=== PATIENT | male | born 1965 | race Caucasian/White ===

== ENCOUNTER → 2023-07-11 | Outpatient (CLI) | payer MEDICARE ==
--- NOTE | 2023-07-11 11:23 | PE ---
EXAMINATION TYPE: PET CT fusion skull to thigh DATE OF EXAM: 07/11/2023 CLINICAL INDICATION:Male, 58 years old with history of C61 Prostate CA; TECHNIQUE: Following the intravenous administration of 5.58 mCi of Ga-68 Illuccix (PSMA), whole bod y images are performed from the skull base to the midthigh. Images are reviewed on the computer in [facility] coronal, axial, and sagittal planes. Reconstructed rotating images are created on independent wor kstation and reviewed on the computer. A non-contrast CT is performed in conjunction with the PET s can. CT DLP: 1073.61 mGycm, Automated exposure control for dose reduction was used. COMPARISON: CT None, PET/CT None, FINDINGS: Mediastinal SUV mean is 1.7. Hepatic parenchyma SUV mean is 5.5. SKULL BASE AND NECK: No suspicious radiotracer activity. CHEST, MEDIASTINUM, AND HILAR REGION: No suspicious radiotracer activity. ABDOMEN AND PELVIS: Abnormal radiotracer activity within the abdomen and pelvis examples include:. * Left retroperitoneal lymph node at the level of the left renal sinus max SUV 2.3. In what is thoug ht to be 1 lymph node with fatty hilum and cortex measuring up to 7 mm. Scattered smaller lymph nodes are present along the aorta with increased metabolic activity. There is at least 9 in the retroperit oneum. * In the pelvis external iliac lymph node on the right max SUV 10.7 and on the left Max SUV 19.1 * Pelvic sidewall lymph nodes on the right max SUV 17.0 and on the left 45.7. These measure 12 and 8 mm in short axis respectively. * Abnormal uptake within the prostate gland near the apex on the right posterior peripherally. Max S UV 19.8. MUSCULOSKELETAL STRUCTURES: No suspicious radiotracer activity. OTHER CT: Mild atherosclerosis of the coronary arteries. Mild bilateral gynecomastia changes. Hepatic steatosis. Cholelithiasis. Fat-containing umbilical hernia. The prostate gland is enlarged measuring up to 5.4 cm in transverse dimension. Bilateral fat-containing inguinal hernias. 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
== END | disposition home or self-care (01) ==
LOC: RADPETMAIN 08:12
PROVIDERS: ATTEND Urology
DX: C61 Malignant neoplasm of prostate (principal)
CPT/HCPCS: 78815; A9596

== ENCOUNTER → 2023-10-04 | Outpatient (CLI) | payer MEDICARE ==
[2023-10-05 03:22] LABS: Prostate Specific Antigen 0.46 ng/mL (0.000-4.500); Testosterone 10.4 ng/dL (86.98-780.10)
== END | disposition home or self-care (01) ==
LOC: LABWHC1 15:23
PROVIDERS: ATTEND Urology
DX: C61 Malignant neoplasm of prostate (principal)
CPT/HCPCS: 36415; 84153; 84403

== ENCOUNTER → 2024-01-27 | Outpatient (CLI) | payer MEDICARE ==
[2024-01-28 03:37] LABS: Prostate Specific Antigen 0.41 ng/mL (0.000-4.500); Testosterone 15.9 ng/dL (86.98-780.10)
== END | disposition home or self-care (01) ==
LOC: LABWHC1 16:26
PROVIDERS: ATTEND Urology
DX: C61 Malignant neoplasm of prostate (principal)
CPT/HCPCS: 36415; 84153; 84403

== ENCOUNTER → 2024-07-21 | Outpatient (CLI) | payer MEDICARE | END | disposition home or self-care (01) | LOC: LABWHC1 14:40 | PROVIDERS: ATTEND Urology | DX: C61 Malignant neoplasm of prostate (principal) | CPT/HCPCS: 36415; 84153 ==

== ENCOUNTER → 2024-10-29 | Outpatient (CLI) | payer MEDICARE ==
--- NOTE | 2024-10-30 08:45 | PE ---
EXAMINATION TYPE: PET CT fusion skull to thigh DATE OF EXAM: 10/29/2024 COMPARISON: Prior PET/CT July 11, 2023 HISTORY: Prostate cancer progress study. TECHNIQUE: Following the intravenous administration of 5.58 mCi of Ga-68 Illuccix, whole body images are performed from the top of head to the midthigh. Images are reviewed on the computer in the jc nal, axial, and sagittal planes. Reconstructed rotating images are created on independent workstatio n and reviewed on the computer. A localization and attenuation correction CT is performed in conjun ction with the PET scan. SCAN: Subsequent Scan FINDINGS: SKULL BASE AND NECK: No new suspicious radiotracer activity. CHEST, MEDIASTINUM, AND HILAR REGION: No new suspicious radiotracer activity ABDOMEN AND PELVIS: Positive treatment response with resolution of abnormal lymph nodes having radiot racer uptake in the retroperitoneum of the lower abdomen and pelvis. Prostate gland shows improvement in abnormal radiotracer uptake in the right apex. There is no suspic ious residual or new areas of abnormal radiotracer uptake. OSSEOUS STRUCTURES: No new areas of suspicious radiotracer activity OTHER CT: Mild coronary artery calcification is redemonstrated. Liver demonstrates diffuse fatty infi ltration. Internal gallstone redemonstrated. Stable moderate-sized fat-containing umbilical hernia. S mall-sized bilateral fat-containing inguinal hernias IMPRESSION: Complete positive treatment response. No new or persistent areas of abnormal radiotracer activity on current study. [facility], , 10/30/2024 8:43 AM
== END | disposition home or self-care (01) ==
LOC: RADPETMAIN 14:41
PROVIDERS: ATTEND Internal Medicine Hematology & Oncology
DX: C61 Malignant neoplasm of prostate (principal); K40.20 Bilateral inguinal hernia, without obstruction or gangrene, not specified as recurrent; K80.20 Calculus of gallbladder without cholecystitis without obstruction; K76.0 Fatty (change of) liver, not elsewhere classified
CPT/HCPCS: 78815; A9596